=== PATIENT | male | born 1975 | race Two or more races ===

== ENCOUNTER 2017-09-08 08:05 | Emergency (ER) | payer MEDICAID ==
[~2017-09-08] VITALS: Ht 165.1 cm; Wt 58.7 kg
[2017-09-08] MEDS ORDERED: KETOROLAC 30 MG/1 ML ONE (08:53)
[2017-09-08] MEDS ORDERED: ONDANSETRON 2MG/ML, 2ML ONE (08:53)
[2017-09-08] MEDS ORDERED: KETOROLAC 30 MG/1 ML IVPush ONE (09:00)
[2017-09-08] MEDS ORDERED: ONDANSETRON 2MG/ML, 2ML IVPush ONE (09:00)
[2017-09-08] MEDS ORDERED: SODIUM CHLORIDE FLUSH 10ML SYR IVF ONE (09:00)
[2017-09-08] MEDS ORDERED: SODIUM CHLORIDE 0.9% 1,000ML IVBOLUS ONE (09:00)
[2017-09-08 09:03] LABS: ALBUMIN 2.4 g/dL (3.4-5.0); ANION GAP 10 mmol/L (5-15); CALCIUM 8.6 mg/dL (8.5-10.1); CHLORIDE 100 mmol/L (98-107)
[2017-09-08 09:10] LABS: MEAN CORPUSCULAR HEMOGLOBIN 33.3 pg (27.5-34.5); MEAN CORPUSCULAR HGB CONC 34.8 g/dL (33.2-36.2); MEAN CORPUSCULAR VOLUME 95.7 fL (81-97); MEAN PLATELET VOLUME 7.6 fL (7.4-10.4); PLATELET COUNT 301 x10^3/uL (130-400); RED BLOOD COUNT 3.85 x10^6/uL (4.38-5.82); RED CELL DISTRIBUTION WIDTH 14.6 % (9.4-14.8)
[2017-09-08 09:54] LABS: BASOPHILS # (AUTO) 0.02 x10^3/uL (0-0.1); BASOPHILS % (AUTO) 0 % (0-1); EOSINOPHILS # (AUTO) 0.03 x10^3/uL (0-0.4); EOSINOPHILS % (AUTO) 0 % (1-7); LYMPHOCYTES # (AUTO) 1.62 x10^3/uL (1-3.4); LYMPHOCYTES % (AUTO) 13 % (22-44); MD SCAN; MONOCYTES # (AUTO) 0.58 x10^3/uL (0.2-0.8); MONOCYTES % (AUTO) 5 % (2-9); NEUTROPHILS # (AUTO) 10.03 x10^3/uL (1.8-6.8); NEUTROPHILS % (AUTO) 82 % (42-75)
[2017-09-08] MEDS ORDERED: CEFTRIAXONE PMX 1GM/50ML 50 ML ONE (09:55)
[2017-09-08] MEDS ORDERED: CEFTRIAXONE PMX 1GM/50ML 50 ML IV ONE (10:00)
[2017-09-08] MEDS ORDERED: AZITHROMYCIN 500 MG in SODIUM CHLORIDE 0.9% 250 ML IV ONE (10:00)
[2017-09-08] MEDS ORDERED: AZITHROMYCIN 500 MG TABLET PO ONE (10:00)
[2017-09-08] MEDS ORDERED: AZITHROMYCIN 500 MG TABLET ONE (10:11)
[2017-09-08 10:25] LABS: CULTURE INDICATED? YES; MICROSCOPIC INDICATED
[2017-09-08 10:42] VITALS: BP 105/59
== END 2017-09-08 10:45 | disposition home or self-care (01) ==
LOC: ED 09:24
DX: J15.9 Unspecified bacterial pneumonia (principal); D72.829 Elevated white blood cell count, unspecified
CPT/HCPCS: 36415; 71046; 80048; 81001; 82040; 85025; 87086; 96361; 96365; 96375; 99285; J0696; J1885; J2405; J7030